=== PATIENT | male | born 2000 ===

== ENCOUNTER 2018-09-28 13:32 | Emergency (ER) | payer OTHER ==
[2018-09-28 14:02] VITALS: BMI 29.1
[2018-09-28 14:07] VITALS: BP 142/85; PULSE 70; RESP 18; TEMP 98.3; O2SAT 98
[2018-09-28] MEDS ORDERED: Lidocaine 1% Inj (20ml) INFIL STA (14:32)
[2018-09-28] MEDS ORDERED: Tetanus/Diphtheria Toxoids 0.5 ml Syringe IM ONE ×2 (14:32→14:45)
[2018-09-28] MEDS ORDERED: Lidocaine Hydrochloride 20 ML INJ ONE (14:45)
[2018-09-28] MEDS ORDERED: Bacitracin 500 Units/gm Oint Foilpak UD TOP ONE (15:02)
[2018-09-28] MEDS ORDERED: Bacitracin 500 Units/gm Oint Foilpak UD ONE (15:06)
--- NOTE | 2018-09-28 15:10 | C.PDOC ---
History Of Present Illness 18-year-old male presents to the ED for evaluation after he sustained a laceration prior to arrival. Patient states he was using a blade to cut a rope when he accidentally cut into his left second digit. Patient is complaining of pain at the site. He states he is not up to date with Tetanus immunization. He denies any other trauma/injuries or sensory changes to the digit at this time. Time Seen by Provider: 09/28/18 14:08 Chief Complaint (Nursing): Abnormal Skin Integrity History Per: Patient History/Exam Limitations: no limitations Onset/Duration Of Symptoms: Hrs Current Symptoms Are (Timing): Still Present Location Of Injury: Left: Hand (2nd digit ) Quality Of Symptoms: Painful Additional History Per: Patient Past Medical History Reviewed: Historical Data, Nursing Documentation, Vital Signs Vital Signs: Last Vital Signs Temp 98.3 F 09/28/18 14:02 Pulse 70 09/28/18 14:02 Resp 18 09/28/18 14:02 BP 142/85 09/28/18 14:02 Pulse Ox 98 09/28/18 14:02 - Medical History PMH: No Chronic Diseases Surgical History: No Surg Hx Family History: States: Unknown Family Hx - Social History Hx Alcohol Use: No Hx Substance Use: No - Immunization History Hx Tetanus Toxoid Vaccination: No Hx Influenza Vaccination: Yes Hx Pneumococcal Vaccination: No Review Of Systems Skin: Positive for: Lesions (laceration to left 2nd digit ) Neurological: Negative for: Weakness, Numbness Physical Exam - Physical Exam Appears: Non-toxic, No Acute Distress, Other (comfortable ) Skin: Normal Color, Warm, Dry Head: Atraumatic, Normacephalic Eye(s): bilateral: Normal Inspection Extremity: Normal ROM (intact at left MCP, PIP and DIP joints ), Capillary Refill (less than 2 seconds ), No Deformity, Other (1cm laceration to left 2nd digit, over the PIP joint) Pulses: Left Radial: Normal, Right Radial: Normal Neurological/Psych: Oriented x3, Normal Speech, Normal Cognition, Normal Sensation ED Course And Treatment O2 Sat by Pulse Oximetry: 98 (on RA) Pulse Ox Interpretation: Normal Progress Note: Tetanus IM and Tylenol PO given. Bacitractin TOP applied. Clean dressing and splint were applied by me. On reassessment, patient is resting comfortably, showing no signs of distress and is stable for discharge. Patient is given wound check and follow up instructions. Laceration - Laceration Repair left 2nd digit Wound Length (In cm): 1 Description Of Wound: Linear Anesthesia: Lidocaine 1% (4ml, digital block ) Wound Examination: Irrigated With Saline, No FB With Wound Exploration Wound Closure: Suture (four ) Suture Technique And Material Used: Interrupted, Nylon (3-0) Wound Complexity: Simple Disposition Counseled Patient/Family Regarding: Diagnosis, Need For Followup, Rx Given - Disposition Referrals: [facility] [Outside] Disposition: HOME/ ROUTINE Disposition Time: 15:10 Condition: STABLE Additional Instructions: SUTURE REMOVAL IN 5-7 DAYS TYLENOL OR IBUPROFEN NEEDED FOR PAIN RETURN TO ER IF YOU HAVE PAIN, SWELLING, REDNESS, FEVER, DISCHARGE, ETC Instructions: Laceration Repair With Stitches (DC) Forms: [employer] (Niuean), Work Excuse Print Language: SAMMARINESE - Clinical Impression Clinical Impression: Laceration of left index finger - Scribe Statement The provider has reviewed the documentation as recorded by the Scribe (Ivet Chahal) Provider Attestation: All medical record entries made by the Scribe were at my direction and perso abdiel dictated by me. I have reviewed the chart and agree that the record accurately reflects my personal performance of the history, physical exam, medical decision making, and the department course for this patient. I have also personally directed, reviewed, and agree with the discharge instructions and disposition.
== END 2018-09-28 15:16 | disposition home or self-care (01) ==
LOC: C.ER 13:32
DX: S61.211A Laceration without foreign body of left index finger without damage to nail, initial encounter (principal); W45.8XXA Other foreign body or object entering through skin, initial encounter; Z23 Encounter for immunization